=== PATIENT | female | born 1990 | race Caucasian/White ===

== ENCOUNTER → 2018-06-09 07:52 | Outpatient (CLI) | payer MEDICAID, SELFPAY ==
--- NOTE | 2018-06-09 08:22 | RAD_ITS ---
STUDY: AIR-CONTRAST UPPER GI SERIES AND SMALL BOWEL FOLLOW-THROUGH EXAMINATION. REASON FOR EXAM: Female, 28 years old. Mid abdominal pain. Loose stools. FLUOROSCOPY TIME (if supplied): (1:45) minutes/seconds. 22 images were obtained. TECHNIQUE: The patient ingested barium. Multiple images of the esophagus, stomach and duodenum were obtained. Following this, a small bowel follow-through examination was performed. COMPARISON: None. FINDINGS: The esophagus is unremarkable. There is no evidence of gastroesophageal reflux. No evidence of obstruction. The stomach and duodenum are unremarkable. There is no evidence of ulceration. No mass lesion is seen. A small bowel follow through examination with an performed. The small bowel transit is normal. There is no evidence of intrinsic or extrinsic small bowel disease. RAD/Upper GI/w Small Bowel IMPRESSION: Unremarkable examination. Electronically Signed: Kp Giraldo MD at 7:53 EDT Tel [phone], Service support ,
== END ==
PROVIDERS: Family Provider Family Medicine; PCP Family Medicine; Visit Provider Nurse Practitioner Adult Health
DX: R19.5 Other fecal abnormalities (principal); R10.13 Epigastric pain; K21.9 Gastro-esophageal reflux disease without esophagitis
CPT/HCPCS: 74249